=== PATIENT | male | born 2000 | race Caucasian/White ===

== ENCOUNTER 2018-08-12 11:37 | Observation (INO) | payer BC, SELFPAY ==
[2018-08-12] VITALS (9 sets, daily range): BP systolic 106–155; BP diastolic 59–91; PULSE 66–98; RESP 16–44; TEMP 36.2–37.1; O2SAT 97–100; BMI 31.5; BMI 31.3; BMI 24.0; BMI 24.1
--- NOTE | 2018-08-12 12:05 | CT_ITS ---
STUDY: CT ABDOMEN AND PELVIS WITHOUT CONTRAST REASON FOR EXAM: Male, 18 years old. 3 day history of right lower quadrant pain. RADIATION DOSAGE (If Supplied By Facility): CTDIvol = ( 14.71 ) mGy, DLP = ( 780.43 ) mGycm TECHNIQUE: Transaxial images were obtained from the dome of the diaphragm to the symphysis pubis without oral contrast, and without intravenous contrast. Sagittal and coronal images were reconstructed. Individualized dose optimization techniques were used for this CT. COMPARISON: None. FINDINGS: Mild degree of the dependent bibasilar atelectasis. The visualized portions of the heart are within normal limits. Normal liver. Normal gallbladder and extrahepatic biliary system. There is mild splenomegaly. Normal pancreas. Normal bilateral adrenal glands. Normal right kidney. Normal left kidney. There is a small hiatal hernia. Normal small intestine. The colon is not adequately distended for appropriate assessment. There are enlarged lymph nodes in the right lower quadrant suggestive of a mesenteric adenitis. There is a tubular, thick-walled appendix (>7mm), consistent with acute appendicitis. Normal abdominal aorta. Normal inferior vena cava. Normal retroperitoneum. Normal urinary bladder. Normal abdominal wall. Normal osseous structures. CT/Abdomen/Pelvis without Cont IMPRESSION: Findings increased with a noncomplicated acute appendicitis. Enlarged lymph nodes in the mesentery in the right lower quadrant suggestive of mesenteric lymphadenitis. Electronically Signed: Robert Rai, at 12:51 EDT , Service support ,
[2018-08-12] MEDS: 0.9% Normal Saline 1,000 ML 125 ML IV ×2 (12:16→19:56)
[2018-08-12] MEDS: Morphine 4 MG/ML Syringe IV (12:16)
[2018-08-12] MEDS: Ondansetron 4 MG/2 ML Vial IV (12:16)
[2018-08-12 12:39] LABS: Absolute Lymphocyte Count 2.34 X10^3/ul (0.83-4.51); Absolute Neutrophil Count 3.9 X10^3/uL (2.0-7.7); Basophil# 0.03 X10^3/uL; Basophil% 0.4 % (0-1); Eosinophil# 0.11 X10^3/uL; Eosinophils% 1.6 % (0-5); Hematocrit 45.9 % (40-54); Hemoglobin 15.5 g/dl (13.0-16.5); Lymphocyte # 2.34 X10^3/ul (4.0); Mean Corp Hgb Conc 33.8 g/gl (32-36); Mean Corpuscular Hgb 31.4 pg (27.0-32.0); Mean Corpuscular Volume 93.1 fL (80-94); Mean Platelet Vol. 9.6 fl (6.2-12.0); Monocyte# 0.68 X10^3/uL; Monocyte% 9.6 % (0-10); Neutrophil # 3.92 X10^3/uL (2.7-7.7); Neutrophil % 55.3 % (47-70); Platelet Count 234 K/mm3 (150-450); RBC Distribution Width CV 11.9 % (11.6-14.6); Red Blood Count 4.93 M/mm3 (4.6-6.2); White Blood Count 7.1 K/mm3 (4.4-11.0)
[2018-08-12 12:46] LABS: Anion Gap 10 (5-15); BUN 10 mg/dL (7-18); BUN/Creat Ratio 11.4 RATIO (10-20); Calcium,Total 9.1 mg/dL (8.5-10.1); Chloride 105 mmol/L (98-107); Creatinine, Serum 0.88 mg/dL (0.70-1.30); EST Glomerular Filtration Rate 118 mL/min (>60); Est Glom Filt Rate - Afr Amer 143 mL/min (>60); Estimated Creatinine Clearance 138.26 ml/min; Glucose 87 mg/dL (74-106); Potassium 3.7 mmol/L (3.5-5.1); Sodium Level 141 mmol/L (136-145)
[2018-08-12 12:51] LABS: POSITIVE COUNT NO; POSITIVE DIFFERENTIAL NO; POSITIVE MORPHOLOGY NO
[2018-08-12 13:05] LABS: Bacteria 0 SEEN /hpf (None Seen); Mucous, Urine 0 SEEN /hpf (<or=2+); Red Blood Cells-Urine 0 SEEN /hpf (0-5); Squamous Epithelial Cells - UA 0 SEEN /hpf (0-5); White Blood Cells 0 SEEN /hpf (0-5)
[2018-08-12 13:08] LABS: Color, Urine Yellow (Yellow); Glucose, Dipstick Normal (Normal); Ketone-Dipstick Negative (Negative); Leukocyte Esterase-Dipstick Negative /ul (Negative); Nitrite-Dipstick Negative (Negative); Occult Blood-Urine Negative /ul (Negative); Protein-Dipstick Negative (Negative); Urine Bilirubin Dipstick Negative (Negative); Urine Clarity Clear (Clear); Urine Urobilinogen Normal (Normal); Urine pH 6.5 (5.0 - 8.0)
--- NOTE | 2018-08-12 13:08 | ED.VISSUMM ---
- ER Visit Summary Date of Service: 08/12/18 Chief Complaint: [Abdominal pain] History of Present Illness: The patient is a 18 M [presents the emergency room with abdominal pain that started 2 days ago. Patient is not had any fever or vomiting. Patient denies diarrhea. Denies any back pain. Patient states initially the pain was kind of upper abdomen and diffuse but now is more localized to the right lower quadrant. Patient did not have much of an appetite today and has not eaten. He denies urinary symptoms.] Physical Examination: [HEENT-PERRLA, EOMI. Cranial nerves II through XII grossly intact. TMs clear. Mucous membranes moist. No adenopathy. Cardiovascular-regular rate and rhythm without murmur or ectopy Lungs-clear to auscultation, chest wall stable without crepitus or subcu emphysema Abdomen-normoactive bowel sounds, soft, nontender, no rebound or rigidity, no peritoneal signs. Extremities-intact ?4, normal range of motion, normal pulses, atraumatic] Test Results: [CBC with it was normal. Chemistries were normal. Urinalysis pending. CT scan with out contrast showed acute appendicitis] Emergency Department Course and Treatment: [Patient was given Zosyn. Patient was given morphine and Zofran] Treatment Plan: [Patient with general surgeon on-call Dr. aGbriel Allison who will evaluate patient in the emergency department for surgical intervention] Disposition: [Admit] Impression: [Acute appendicitis] This note was generated with iversity dictation software. It may contain incorrect words, spelling, and punctuation that were not noted in review of the chart prior to signing ED Disposition - Plan for ED Patient: Referrals: Diogo Alva MD [Primary Care Provider] -
--- NOTE | 2018-08-12 13:45 | ED.RN ---
called report to Demetrice YOUNG in [facility]
--- NOTE | 2018-08-12 15:39 | PCM.HP.STD ---
History of Present Illness Date of Admission: 08/12/18 Chief Complaint: RLQ pain The patient is a 18 year old M with a two day history of vague abdominal pain localizing into the right lower quadrant. He has anorexia. Denies fever, chills, nausea or vomiting. He presented to the [facility] ER. WBC count normal. CT scan was consistent with appendicitis. Past Medical History Allergies No Known Allergies Allergy (Verified 08/12/18 13:58) Home Medications: Ambulatory Orders Medication Instructions Recorded NK 08/12/18 Surgical History: no surgical history Smoking Status: Never smoker Review of Systems Constitutional: Reports: Anorexia. Denies: Chills, Fever, Weight Change HEENT: Denies: Head Aches, Sinus Congestion, Sinus Drainage Cardiovascular: Denies: Chest Pain, Palpitations Respiratory: Denies: Cough, Shortness of breath at rest, Sputum production Gastrointestinal: Reports: Abdominal Pain. Denies: Nausea, Vomiting Genitourinary: Denies: Dysuria Musculoskeletal: Denies: Joint Pain, Joint Tenderness Skin: Denies: Rash, Wounds Neurological: Denies: Numbness, Tingling, Focal weakness Psychiatric: Denies: Anxiety, Depression, Homicidal Ideations, Suicidal Ideations Hematologic/ Lymphatic: Denies: Easy Bruising, Easy Bleeding VTE Information - Inpt Only VTE Present on Admission: No VTE Mechan Device Prophylaxis: SCD's VTE Pharm Prophylaxis ordered?: No - Physical Exam General: Alert, Oriented x3, Cooperative HEENT: Atraumatic, PERRLA, EOMI, Normocephalic Neck: Supple, No JVD Lungs: Clear to auscultation, Normal air movement Cardiovascular: Regular rate, No murmurs Abdomen: Bowel Sounds Present, Soft, Tender - RLQ - minimally Extremities: No edema, Capillary Refill Less than 3 Seconds Skin: No rashes, No breakdown Musculoskeletal: No Tenderness to Palpation of Joints or Extremities Neurological: Cranial nerves II-XII grossly intact Psych/Mental Status: Normal Affect, Appropriate Vital Signs Temp Pulse Resp BP Pulse Ox 97.8 F 86 16 145/84 H 99 08/12/18 13:18 08/12/18 13:18 08/12/18 13:18 08/12/18 13:18 08/12/18 13:18 Oxygen Delivery Method Room Air Weight: 99.1 kg Body Mass Index (BMI) 31.3 Laboratory Tests Past 24 Hrs 08/12/18 08/12/18 08/12/18 12:20 12:20 12:56 WBC 7.1 RBC 4.93 Hgb 15.5 Hct 45.9 MCV 93.1 MCH 31.4 MCHC 33.8 RDW 11.9 RDW Differential 40.0 Plt Count 234 MPV 9.6 Immature Gran % (Auto) 0.100 Neut % (Auto) 55.3 Lymph % (Auto) 33.0 [place] % (Auto) 9.6 Eos % (Auto) 1.6 Baso % (Auto) 0.4 Absolute Neuts (auto) 3.9 Absolute Lymphs (auto) 2.34 Total Counted Not Reportable Sodium 141 Potassium 3.7 Chloride 105 Carbon Dioxide 26.0 Anion Gap 10 BUN 10 Creatinine 0.88 Estim Creat Clear Calc 138.26 Est GFR (MDRD) Af Amer 143 Est GFR (MDRD) Non-Af 118 BUN/Creatinine Ratio 11.4 Glucose 87 Calcium 9.1 Urine Color Yellow Urine Clarity Clear Urine pH 6.5 Ur Specific [place] 1.010 Urine Protein Negative Urine Glucose (UA) Normal Urine Ketones Negative Urine Occult Blood Negative Urine Nitrite Negative Urine Bilirubin Negative Urine Urobilinogen Normal Ur Leukocyte Esterase Negative Urine RBC 0 SEEN Urine WBC 0 SEEN Ur Squamous Epith Cells 0 SEEN Urine Bacteria 0 SEEN Urine Mucus 0 SEEN Assessment/Plan Early Appendicitis I plan to perform a laparoscopic appendectomy. The patient and his parents understand the risks, benefits, possible complications and alternatives and agree. He will have SCD for VTE prevention. He received Zosyn in the ER
[2018-08-12] MEDS: Bupivacaine Mpf 0.5% 30 ML VIAL (21:40)
--- NOTE | 2018-08-12 21:43 | OP.PCM_ITS ---
Report of Operation Date of Procedure: 08/12/18 Pre-Operative Diagnosis: appendicitis Post-Operative Diagnosis: appendicitis Surgery/Procedure Performed:: laparoscopic appendectomy clinical laboratory aides teacher: None Type of Anesthesia:: General Anesthesiologist: Kris Conte Specimen's removed: appendix Estimated Blood Loss (mL): 10 Fluids Replaced: 800 Description of Procedure: The patient was brought to the operating suite. Sign in was performed verifying patient, site, procedure, position, and DVT prophylaxis with SCDs. Patient received 4.5 g Zosyn for presumed appendicitis in the ER. Following induction of general anesthetic. The patient?s abdomen was prepped and draped in the usual fashion. Timeout was performed verifying patient, site, position. Local anesthetic was injected below the umbilicus. Incision made and dissection carried down to the umbilical root fascia. 2 stay sutures were placed. Incision made in the fascia, the peritoneum entered under direct visualization. A 10 mm Park trocar was inserted and secured with the stay sutures. Pneumoperitoneum to 15 mmHg was insufflated. 2 5mm ports were placed in the standard position. Visual inspection revealed early appendicitis. A window was made between the base the mesoappendix and the base of the appendix transected with the intestinal load Endo PEREZ stapler at the base of the cecum. The mesoappendix was transected with a harmonic scalpel. The appendix was placed in an Endobag and removed through the umbilical port site. An 0 PDS [id number] suture was placed around the umbilical port site defect. Pneumoperitoneum was reestablished. The appendiceal area was checked for hemostasis. 5mm ports were removed under direct visualization with no signs of bleeding. Pneumoperitoneum was released. The Park trocar was removed. The umbilical fascial suture was secured area did skin was closed with interrupted 4-0 Monocryl subcuticular sutures. Steri-Strips and bandages were applied. The patient was brought to recovery room in stable condition. - Admit VTE Documentation VTE Present on Admission: No VTE Mechan Device Prophylaxis: SCD's VTE Pharm Prophylaxis ordered?: No
[2018-08-12] MEDS: Morphine 2 MG/ML Syringe IV (23:45)
[2018-08-12] MEDS: Lactated Ringers 1,000 ML 100 ML IV (23:45)
--- NOTE | 2018-08-13 | APP_PTH ---
PATIENT: SOFI GURROLA LOC: [facility]3 U#:[id number] AGE/SX: 18/M ROOM: MA320 RE08/12/[address]: Dr. Gabriel Allison MD : 2000 BED: 1 DIS: 08/13/2018 SPEC #: [id number] RECD: 08/13/18 14:31 STATUS: MELANIE REQ #: [id number] WENDY: 08/13/18 00:[address]: Gabriel Allison DEPT: SURGICAL PATHOLOGY RECD BY: Omar Millan ENTERED: 08/13/18 14:32 SP TYPE: APPENDIX OTHR DR: Dr. Diogo Alva MD Tissues: Appendix, NOS Procedures: Surgery Specimen Level III HEADER OPERATION: Laparoscopic appendectomy PRE-OP DIAGNOSIS: Acute appendicitis TISSUE SUBMITTED: Appendix MICROSCOPIC DIAGNOSIS Appendix: Acute appendicitis and periappendicitis. See comment. CAYDEN:mandi 08/15/18 COMMENT The entire appendix is examined. Acute inflammation is noted only focally. Moderate chronic inflammation is noted in the appendicular wall and also in the periappendiceal adipose tissue. Case has been reviewed in consultation with Dr. Caballero who concurs with the above diagnosis. IDC:AM MICROSCOPIC DESCRIPTION Slides are reviewed. GROSS DESCRIPTION Received is one container labeled with the patient's name and designated appendix. The specimen consists of an appendix with attached periappendiceal adipose tissue measuring 7 cm in length and up to 0.6 cm in diameter. The serosa is congested. No obvious perforation is identified. The attached periappendiceal adipose tissue measures up to 2.5 cm in width. The lumen is filled with hemorrhagic fecal material. No fecalith is identified. Boring Inspector sections are submitted in one cassette. / SJ:mandi 08/13/18 The rest of the appendix is submitted in two more cassettes, 2 & 3. / SJ:mandi 08/14/18 TC:4 CPT: 43174
[2018-08-13 01:02] VITALS: BP 134/48; PULSE 98; RESP 18; TEMP 36.6; O2SAT 97
[2018-08-13 03:02] VITALS: BP 122/46; PULSE 93; RESP 18; TEMP 36.9; O2SAT 96
[2018-08-13] MEDS: Morphine 2 MG/ML Syringe IV ×2 (03:05→05:45)
[2018-08-13] MEDS: Lactated Ringers 1,000 ML 100 ML IV (05:37)
[2018-08-13 07:23] LABS: Absolute Lymphocyte Count 1.58 X10^3/ul (0.83-4.51); Absolute Neutrophil Count 5.5 X10^3/uL (2.0-7.7); Basophil# 0.02 X10^3/uL; Basophil% 0.3 % (0-1); Eosinophil# 0.06 X10^3/uL; Eosinophils% 0.8 % (0-5); Hematocrit 42.2 % (40-54); Lymphocyte # 1.58 X10^3/ul (4.0); Lymphocyte % 19.9 % (19-41); Mean Corp Hgb Conc 33.2 g/gl (32-36); Mean Corpuscular Hgb 31.3 pg (27.0-32.0); Mean Corpuscular Volume 94.4 fL (80-94); Mean Platelet Vol. 9.4 fl (6.2-12.0); Monocyte# 0.79 X10^3/uL; Monocyte% 9.9 % (0-10); Neutrophil # 5.48 X10^3/uL (2.7-7.7); POSITIVE COUNT NO; POSITIVE DIFFERENTIAL NO; POSITIVE MORPHOLOGY NO; Platelet Count 220 K/mm3 (150-450); RBC Distribution Width CV 12.2 % (11.6-14.6); RBC Distribution Width SD 41.5 fl (35.1-43.9); Red Blood Count 4.47 M/mm3 (4.6-6.2); White Blood Count 7.9 K/mm3 (4.4-11.0)
[2018-08-13 07:53] LABS: Anion Gap 4 (5-15); BUN 11 mg/dL (7-18); BUN/Creat Ratio 13.1 RATIO (10-20); Calcium,Total 8.1 mg/dL (8.5-10.1); Chloride 109 mmol/L (98-107); Creatinine, Serum 0.84 mg/dL (0.70-1.30); EST Glomerular Filtration Rate 123 mL/min (>60); Est Glom Filt Rate - Afr Amer 149 mL/min (>60); Estimated Creatinine Clearance 144.84 ml/min; Glucose 101 mg/dL (74-106); Potassium 3.9 mmol/L (3.5-5.1); Sodium Level 139 mmol/L (136-145)
[2018-08-13 08:23] VITALS: BP 118/69; PULSE 85; RESP 18; TEMP 36.6; O2SAT 96
[2018-08-13] MEDS: Ibuprofen 400 MG Tablet PO (08:43)
[2018-08-13] MEDS: Acetaminophen 325 MG Tablet 650 MG PO ×2 (10:57→18:17)
[2018-08-13] MEDS: Ibuprofen 600 MG Tablet PO (14:14)
[2018-08-13 14:18] VITALS: BP 117/73; PULSE 62; RESP 18; TEMP 37.2; O2SAT 97
--- NOTE | 2018-08-13 18:39 | DCINST_ITS ---
Discharge Diet: Light diet - advance as tolerated Discharge Activity: May Not Drive - for 3-5 days or while taking narcotic pain meds. May shower in (days): 1 Suture Line Care: Avoid Pulling/Pushing, Avoid Pinching/Bending Additional Dressing/Incision Instructions:: Keep dressing clean and dry. Change or remove dressing in 2 days. Leave steri strips for 1 week. May protect with a gauze bandaid. Medications to take at Discharge Oxycodone [Oxyir] 5 mg PO Q6H PRN PRN 7 Days #8 tab 08/13/18 Allergies/Adverse Reactions: Allergies No Known Allergies Allergy (Verified 08/12/18 13:58) The following prescriptions were given: Oxycodone [Oxyir] 5 mg PO Q6H PRN PRN 7 Days #8 tab PRN Reason: Pain Primary Care Physician: Diogo Alva MD [Primary Care Provider] - Test Results: Test results from this visit will be discussed in further detail at your follow- up appointment, if applicable. Please Follow Up With: Gabriel Allison MD - [phone] When: Call to make a follow up appointment in 1 week.
--- NOTE | 2018-08-13 18:39 | PCM.DC.SUM ---
Discharge Date and Diagnosis Date of Admission: 08/12/18 Date of Discharge: 08/13/18 - Primary Discharge Diagnosis acute appendicitis Hospital Course and Treatment Operations: appendectomy Summary of Care Provided: The patient is a 18 year old M he was admitted on 311 with a 2 day history of abdominal localized right lower quadrant pain with a CT scan demonstrating acute appendicitis. The patient underwent laparoscopic appendectomy for early appendicitis. He was tolerating oral pain medicine and liquids and remained afebrile and was okay for discharge home on postoperative day 1. - Physical Exam General: Alert, Oriented x3 Lungs: Clear to auscultation, Normal air movement Cardiovascular: Regular rate, Regular Rhythm Abdomen: Soft, Hypoactive Bowel Sounds, Tender - at incisions Vital Signs Temp Pulse Resp BP Pulse Ox 99.0 F 62 18 117/73 97 08/13/18 14:18 08/13/18 14:18 08/13/18 14:18 08/13/18 14:18 08/13/18 14:18 Oxygen Flow Rate (L/min) 2 Oxygen Delivery Method Room Air Weight: 76.204 kg Body Mass Index (BMI) 24.0 Intake and Output for Last 24 Hours 08/11/18 08/12/18 08/13/18 23:59 23:59 23:59 Intake Total 1200 / 1200 3921 / 3921 Output Total 200 / 200 Balance 1200 / 1200 3721 / 3721 Laboratory Tests Past 24 Hrs 08/13/18 08/13/18 06:55 06:55 WBC 7.9 RBC 4.47 L Hgb 14.0 Hct 42.2 MCV 94.4 H MCH 31.3 MCHC 33.2 RDW 12.2 RDW Differential 41.5 Plt Count 220 MPV 9.4 Immature Gran % (Auto) 0.100 Neut % (Auto) 69.0 Lymph % (Auto) 19.9 [place] % (Auto) 9.9 Eos % (Auto) 0.8 Baso % (Auto) 0.3 Absolute Neuts (auto) 5.5 Absolute Lymphs (auto) 1.58 Total Counted Not Reportable Sodium 139 Potassium 3.9 Chloride 109 H Carbon Dioxide 26.0 Anion Gap 4 L BUN 11 Creatinine 0.84 Estim Creat Clear Calc 144.84 Est GFR (MDRD) Af Amer 149 Est GFR (MDRD) Non-Af 123 BUN/Creatinine Ratio 13.1 Glucose 101 Calcium 8.1 L Discharge Diet: Light diet - advance as tolerated Discharge Activity: May Not Drive - for 3-5 days or while taking narcotic pain meds. May shower in (days): 1 Suture Line Care: Avoid Pulling/Pushing, Avoid Pinching/Bending Additional Dressing/Incision Instructions:: Keep dressing clean and dry. Change or remove dressing in 2 days. Leave steri strips for 1 week. May protect with a gauze bandaid. Home Medications: Medications to take at Discharge Oxycodone [Oxyir] 5 mg PO Q6H PRN PRN 7 Days #8 tab 08/13/18 Following Prescrptions Were Given to Patient: Oxycodone [Oxyir] 5 mg PO Q6H PRN PRN 7 Days #8 tab PRN Reason: Pain Primary Care Physician: Diogo Alva MD [Primary Care Provider] - Please Follow Up With: Gabriel Allison MD - [phone] When: Call to make a follow up appointment in 1 week. Medical Necessity - Tobacco Use Smoking Status: Never smoker Tobacco Use: Non-smoker Meaningful Use Info Meaningful Use Diagnoses (Choose all that apply): None applicable
[2018-08-13 18:47] VITALS: BP 131/79; PULSE 88; RESP 16; TEMP 37.1; O2SAT 100
== END 2018-08-13 18:58 | disposition home or self-care (01) ==
LOC: ED 13:09 → AC 13:13 → MS3 13:19 → AC 08-13 10:46
PROVIDERS: Admitting Provider Surgery; Emergency Provider Emergency Medicine; Family Provider Family Medicine; PCP Family Medicine; Referring Provider Surgery; Visit Provider Surgery
PROC: 0DTJ4ZZ Resection of Appendix, Percutaneous Endoscopic Approach (ICD-10-PCS; CPT 44970; principal; 2018-08-12 16:20)
DX: K35.80 Unspecified acute appendicitis (principal)
CPT/HCPCS: 00840; 44970; 36415; 74176; 80048; 81001; 85025; 88304; 96361; 96365; 96366; 96375; 96376; 99218; 99284; J7030; J7120; A4216; G0378; J2405

== ENCOUNTER 2022-06-02 16:50 | Emergency (ER) | payer OTHER, SELFPAY ==
[2022-06-02 16:52] VITALS: BP 164/119; PULSE 91; RESP 18; TEMP 36; O2SAT 99; BMI 35.9
--- NOTE | 2022-06-02 17:30 | RAD_ITS ---
EXAM: XR RIGHT ELBOW COMPLETE, 3 OR MORE VIEWS CLINICAL INDICATION: pain, fell off skateboard TECHNIQUE: Frontal, lateral and oblique views of the right elbow. This report was created using Mosoro report generation technology. COMPARISON: None. FINDINGS: BONES/JOINTS: Unremarkable. No displaced fracture. No destructive or sclerotic lesions. Visualized joint spaces are unremarkable. SOFT TISSUES: Unremarkable. No soft tissue swelling or gas. No radiopaque foreign body. RAD/Elbow min 3 Views IMPRESSION: Negative right elbow. Electronically Signed: Shelbi Jin MD at 18:16 EST Reading Location ID and State: [id number] / Tel , Service support ,
--- NOTE | 2022-06-02 17:30 | RAD_ITS ---
INDICATION: pain, fell off skateboard EXAMINATION/TECHNIQUE: X-RAY - RIGHT XR Wrist Min 3 Views 3 VIEWS COMPARISON: None. FINDINGS: No acute fracture or dislocation. No destructive bone changes. Joint spaces are well-maintained. Normal alignment. Soft tissues are unremarkable. No radiopaque foreign body or soft tissue gas. RAD/Wrist min 3 Views IMPRESSION: Negative. Electronically Signed: Shelbi Jin MD at 18:15 EST Reading Location ID and State: [id number] / Tel , Service support ,
--- NOTE | 2022-06-02 17:30 | RAD_ITS ---
INDICATION: pain, fell off skateboard EXAMINATION/TECHNIQUE: X-RAY - RIGHT XR Shoulder Min 2 Views 2 VIEWS COMPARISON: None. FINDINGS: No acute fracture or dislocation. No destructive bone changes. Joint spaces are well-maintained. Normal alignment. Soft tissues are unremarkable. No radiopaque foreign body or soft tissue gas. RAD/Shoulder min 2 Views IMPRESSION: Negative. Electronically Signed: Shelbi Jin MD at 18:14 EST Reading Location ID and State: [id number] / Tel , Service support ,
[2022-06-02 20:15] VITALS: BP 165/106; PULSE 94
--- NOTE | 2022-06-02 20:31 | EDS_ITS ---
HPI History of Present Illness Chief Complaint: Trauma Informant: patient and spouse/S.O. Narrative Narrative: Patient was riding an electric long board skateboard. He was going about 15 or 20 miles an hour. It started to shake and he fell off. He remembers hitting the ground and rolling over and over. He did not lose consciousness and his brother said he did not lose consciousness. He did hit his right forehead but states he is not having headache. He has no visual complaints. His only area of pain is the right arm and mostly at the right shoulder. He states he is suspicious it may have been dislocated. He states when he got up he moved his arm and he felt a big pop in the shoulder and the pain actually got less then. No trouble breathing. No abdominal pain. No hematuria. He states other than his right arm and shoulder he feels fine. His states he is acting normally. He is not on any blood thinners. PFSH PFSH Medical History no medical history Home Medications amitriptyline 10 mg tablet 10 mg PO DAILY 06/02/22 [History Last Taken Unknown] naproxen 500 mg tablet 500 mg PO BID #14 tabs 06/02/22 [Rx Last Taken Unknown] Allergy/AdvReac Type Severity Reaction Status Date / Time No Known Allergies Allergy Verified 06/02/22 16:51 Surgical History History of appendectomy Social History Smoking Status: Never smoker ROS ROS ED Constitutional Constitutional ED: Denies fever(s) Eyes Eyes: Reports other Details: Patient does have some swelling around the right eye but no visual complaints when he opens his eye. ; Denies blurry vision or change in vision ENT ENT ED: Denies ear pain, rhinorrhea or sore throat Cardiovascular Cardiovascular: Denies chest pain or palpitations Respiratory/Chest Respiratory/Chest: Denies cough or dyspnea Gastrointestinal Gastrointestinal: Denies abdominal pain, nausea or vomiting Genitourinary Genitourinary ED: Denies hematuria Musculoskeletal Musculoskeletal: Reports other Details: Patient has no neck or back pain. He does have right arm pain ; Denies back pain or neck pain Integumentary Reports Abrasions Neurologic Neurologic: Denies headache(s), paresthesias or weakness Psychiatric Psychiatric: Reports anxiety Endocrine Endocrinology: Denies polydipsia or polyuria Hematologic/Lymphatic Hematologic/Lymphatic: Denies easy bleeding or easy bruising Allergic/Immunologic Allergic/Immunologic ED: Denies urticaria EXAM Physical Exam Const Vital Signs: 06/02/22 16:52 06/02/22 20:12 06/02/22 20:15 Temperature 96.8 F L Temperature Source Temporal Pulse Rate 91 94 Respiratory Rate 18 Respiratory Effort Normal Non-Labored Respiratory Depth Normal Respiratory Pattern Normal Blood Pressure 164/119 H 165/106 H Blood Pressure Mean 134 125 Pulse Ox 99 Oxygen Delivery Method Room Air Positive well nourished General Appearance ED: NAD HEENT HEENT Narrative: Patient does have abrasion to the lateral aspect of the right eyebrow. No laceration. There is some mild swelling of upper and lower lid. But he can open his eyes. The eye itself does not seem to be involved. Tympanic membranes are clear. There is really no facial tenderness. Eyes EOMs intact bilaterally General Eye ED: Yes other Neck full ROM General: Negative for tenderness Chest Wall inspection of chest normal and palpation of chest normal Chest Narrative: No chest wall tenderness. No subcu air. Resp normal respiratory effort and clear to auscultation bilaterally Auscultation: Negative for rales, rhonchi or wheezes Cardio regular rhythm and no murmurs Rate: regular rate GI normal to inspection, nondistended, normoactive bowel sounds and non-tender Back/Spine normal to inspection General Back: Negative for CVA tenderness Extremity Extremity Narrative: There is no deformity. He has some mild nonfocal tenderness to extremity. There is no significant abrasions. Shoulder is clinically in joint. There is no indication of dislocation clinically. Clavicle is nontender. Scapula is nontender. All his soreness is in the right upper extremity. There is a minimal abrasion to anterior aspect of his left knee but no tenderness or limitation of motion. Neuro oriented x3 Sensorium / Orientation: alert Psych mental status grossly normal Skin Skin Narrative: Abrasion right brow MDM MDM MDM Narrative Medical decision making narrative: X-rays are not showing any acute process. No sign of dislocation or fracture. Patient already has a sling. He can use this but he should use frequent range of motion to avoid stiffness. Tylenol Motrin is appropriate. I do not think he needs a CT scan of his head. Although he hit his head, he is not confused. There is been no nausea vomiting or neurologic symptoms. He is not on blood thinners. He never lost consciousness. Radiography Diagnostic Testing: Clinical Impression(s) from Imaging Studies Elbow X-Ray 06/02/22 17:30 IMPRESSION: Negative right elbow. Electronically Signed: Shelbi Jin MD at 18:16 EST Reading Location ID and State: [place] / Tel , Service support , Shoulder X-Ray 06/02/22 17:30 IMPRESSION: Negative. Electronically Signed: Shelbi Jin MD at 18:14 EST Reading Location ID and State: [place] / Tel , Service support , Wrist X-Ray 06/02/22 17:30 IMPRESSION: Negative. Electronically Signed: Shelbi Jin MD at 18:15 EST Reading Location ID and State: [place] / Tel , Service support , Three-view x-ray of the right wrist, 3 view x-ray of his right elbow, 2 view x- ray of the right shoulder show no sign of acute fracture or dislocation. These were looked at by me and read by radiology. Discharge Plan Triage Chief Complaint: Trauma ED Provider: Darnell Almendarez Dx/Rx/DC Orders Clinical Impression: Fall from skateboard, Contusion of right shoulder, Strain of elbow, right, Strain of right wrist Instructions: ED Concussion, ED Shoulder Contusion Prescriptions: New naproxen 500 mg tablet 500 mg PO BID Qty: 14 0RF No Action amitriptyline 10 mg tablet 10 mg PO DAILY Primary Care Provider: Diogo Alva Referrals: Dioog Alva MD [Primary Care Provider] - 1 Week if not improving Disposition Disposition: Home, Self Care
== END 2022-06-02 20:50 | disposition home or self-care (01) ==
PROVIDERS: Emergency Provider Emergency Medicine; PCP Family Medicine; Visit Provider Emergency Medicine
DX: S40.011A Contusion of right shoulder, initial encounter (principal); S53.401A Unspecified sprain of right elbow, initial encounter; S63.501A Unspecified sprain of right wrist, initial encounter; V00.131A Fall from skateboard, initial encounter; F41.9 Anxiety disorder, unspecified
CPT/HCPCS: 73030; 73080; 73110; 99282

== ENCOUNTER 2022-07-28 07:00 | Outpatient (RCR) | payer OTHER, SELFPAY ==
--- NOTE | 2022-07-07 10:28 | HP.PTEVAL_ITS ---
Patient's Visit Information SOFI GURROLA is a 22 year old M referred to Physical Therapy by KAJAL Baldwin with a diagnosis of RIGHT CUFF ARTHROPATHY ,RIGHT. Date of Evaluation: 07/07/22 Physical Therapist: Scout Small, PT, Cert MDT, OCS - Visit Plan Frequency: 2x /Week Duration: 4 Weeks Plan: (+ signs with RTC tear). PT INTERVETIONS GRADED RTC /SCAPUALR STRENGTHENING ,POSTURAL EX'S ,ROM AND MODALTIES FOR PAIN - Subjective This 22 y/o male presents to physical therapy with right shoulder pain. Patient injury to right shoulder Jun 02 ,riding electric long board hip on top of shoulder and elbows subluxation shoulder. ER DOI ,prescribed Naprosyn. Patient had x-rays Patient seen 2 weeks later recommended PT and cont with PT. Patient pain is global described as ache /stabbing pain. Aggravating factors raising OG ,lifting ,ADLS above 90 degrees affects job demands. Alleviating medication, rest. Patient denies paresthesia/tingling . Pain affects sleeping. Patient condition affects QOL and function with job demands.. Goals no pain and full function. SOCIAL: . 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 PALAPTION: unremarkable. NUERO: intact denies paresthesia/tingling. AROM: shoulder flexion 145 degrees ,abduction 140 degrees ,ER 90 ,IR L1. MMT:(peak force ) infraspinatus 8.8 ,supraspinatus 2.7 ,subscapularis 12.3,deltoiid 0 - Special Tests Sharp Roni: Negative Vertebral Artery Test: Negative Alar Ligament Test: Negative R Shoulder External Rotation Lag Test - RC Tear: Positive R Shoulder Supine Impingement Test - RC Tear: Positive R Shoulder Drop Sign - IS Test: Negative R Shoulder Empty Can - SS: Positive R Shoulder Belly Press - SupScap: Positive R Shoulder Neer - Impingement: Positive R Shoulder [place] Juan - Impingement: Positive R Shoulder Speeds Test - Labrum/Biceps: Positive - Goals Goal 1:: Patient to be I with HEP for shoulder Goal Time Frame: 4-6 Weeks Goal 2:: Patient to demonstrate 50% improvement with improved function and ADLS Goal Time Frame: 4-6 Weeks Goal 3:: Patient to be improve peak force RTC and deltoid by 5-10 to improve function Goal Time Frame: 4-6 Weeks Goal 4:: Patient to improVe AROM shoudler flexion and 160 degrees to improve functiion with OH Goal Time Frame: 4-6 Weeks Goal 5:: Improve quick dash by 5 points or > to improve function and activities above 90 degrees Goal Time Frame: 4-6 Weeks - Rehabilitation Potential Physical Therapy Diagnosis: This patient has right shoulder pain with + signs RTC tear ,+ supraspinatus ,with weakness and pain with substitution with ROM affects ADL and housework tasks thus benefit from skilled PT Rehabilitation Potential: Fair - Anticipated Interventions Patient/Client Instruction: Educate patient on: Condition, Plan of Care For the Purpose of:: To decrease pain, To increase ROM, To improve muscle performance and motor function, To improve ability to perform ADL's, To increase tolerance to activity/condition/position, To improve ability of physical actions for home/community/work/leisure, To improve health of tissue, To decrease soft tissue restriction, To improve tolerance to ADL's Therapeutic Exercise to Include: Strength training, Postural training, Flexibilty training, Passive ROM, Active ROM, Scapular Strength/Stabilization Comment: RTC For the Purpose of:: To decrease pain, To increase ROM, To improve muscle performance and motor function, To improve ability to perform ADL's, To increase tolerance to activity/condition/position, To improve ability of physical actions for home/community/work/leisure, To improve health of tissue, To decrease soft tissue restriction, To increase flexibility/ROM, To prevent re-injury, To improve tolerance to ADL's TENS: Yes Other electric stimulation: Yes Cryotherapy (ice pack, ice massage): Yes Thermo therapy (hot pack): Yes Ultrasound (thermal/non thermal): Yes For the Purpose of:: To decrease pain, To increase ROM, To improve nutrient delivery to tissue, To increase oxygenation perfusion, To improve health of tissue, To decrease soft tissue restriction Thank you for the opportunity to evaluate your patient. For Medicare and Medicare HMO plans, please review the plan of care and approve it. It will need to be FAXED BACK to us at [phone] for Medicare purposes. For Medicare only, by signing this I certify the plan of care. Please let me know if there are questions or concerns regarding this plan of care. Physician Signature: Date:
--- NOTE | 2022-12-31 17:10 | HP.PTDCSUM ---
Discharge Summary D/C summary: It has been my pleasure to treat SOFI GURROLA referred by KAJAL Baldwin, with the diagnosis of RIGHT CUFF ARTHROPATHY ,RIGHT for a total of 7 visit(s). Discharge Date: Please see the following information for a summary of their discharge status. Subjective Subjective: Doing okay better Pain Right Shoulder: Pain Intensity (Out of 10): 1 Overall Improvement % Improvement: 50 Objective Objective/Function: INFRASPINATUS 3+/5 SUPRASPINATOUS 3+/5 DELTOID: 3+/5 Goals Goal 1:: Patient to be I with HEP for shoulder Goal Progress: Progressing Goal 2:: Patient to demonstrate 50% improvement with improved function and ADLS Goal Progress: Progressing Goal 3:: Patient to be improve peak force RTC and deltoid by 5-10 to improve function Goal Progress: Progressing Goal 4:: Patient to improVe AROM shoudler flexion and 160 degrees to improve functiion with [place] Goal Progress: Progressing Goal 5:: Improve quick dash by 5 points or > to improve function and activities above 90 degrees Plan Plan: RTD SUSPECT POSSIBLE RTC TEAR D/C Information d/c sentence: If there are questions or concerns regarding this patient's physical therapy, please feel free to call me at [phone]. Thank you for the referral of this patient. Sincerely, Scout Small PT, Cert MDT, OCS Balance/Gait/Functional tests Balance/Special Test Scores Quick DASH Score: [phone]
== END 2022-07-28 19:00 | disposition home or self-care (01) ==
LOC: PT 07:00
PROVIDERS: PCP Family Medicine; Referring Provider Registered Nurse; Visit Provider Registered Nurse
DX: M12.811 Other specific arthropathies, not elsewhere classified, right shoulder (principal)
CPT/HCPCS: 97110; 97161